=== PATIENT | female | born 1970 | race African-American/Black ===

== ENCOUNTER 2017-12-09 11:24 | Emergency (ER) | payer SELFPAY ==
[~2017-12-09] VITALS: Ht 157.5 cm; Wt 59.0 kg
[2017-12-09 11:51] VITALS: BP 118/67
--- NOTE | 2017-12-09 12:13 | Emergency Room Report ---
History of Present Illness General Chief Complaint: Back Pain-No Injury Source: Patient Present Illness HPI 47-year-old female patient presents ER complaining of back pain intermittently for the past year. Reports pain is worsened over the past few weeks. Reports pain sometimes radiates down right leg. Reports able to ambulate. Denies dysuria, hematuria. Denies hx of imaging on back. Denies history of back injury or surgery. Denies fever, chest pain, SOB. Denies bowel or bladder incontinence. Denies hx of surgery. Denies hx of cancer or IVDA. Denies abdominal pain. Denies saddle anesthesia. Allergies: Coded Allergies: No Known Allergies (Unverified , 12/09/17) Patient History Past Medical History: see triage record Reviewed Nursing Documentation: PMH: Agreed; PSxH: Agreed Nursing Documentation-PMH Past Medical History: No Stated History Review of Systems All Other Systems: negative except mentioned in HPI Physical Exam Vital Signs Date Time Temp Pulse Resp B/P (MAP) Pulse Ox O2 Delivery O2 Flow Rate FiO2 12/09/17 11:29 98.5 77 17 118/67 100 Room Air 98.4 Sp02 EP Interpretation: reviewed, normal General Appearance: well appearing, no apparent distress, alert, GCS 15, non- toxic Head: normocephalic, atraumatic Neck: full range of motion, no bony tend Respiratory: lungs clear, normal breath sounds, no rhonchi, no respiratory distress, no accessory muscle use, no wheezing, speaking full sentences Cardiovascular #1: regular rate, rhythm, no edema Genitourinary: no CVA tenderness Musculoskeletal: back normal, digits/nails normal, gait/station normal, normal range of motion, non-tender - spin, no calf tenderness, pelvis stable, other - no bony tenderness, no bony stepoff, NVI, no eccymosis, no erythema, tender - right lumbosacral region Neurologic: alert, oriented x3, responsive, motor strength/tone normal, SLR negative, sensory intact Skin: no rash Medical Decision Making PA Attestation Dr. Hill is my supervising Physician whom patient management has been discussed with. Diagnostic Impression: Primary Impression: Lumbosacral pain ER Course Pt presents to ED c/o back pain. DDX considered but are not limited to sprain, strain, cauda equina, sciatica. Low suspicion for cauda equina, no bowel or bladder incontinence or retention. CURES report negative. VITAL SIGNS are WNL, patient is afebrile Ordered pain medication, imaging, UA, urine . No previous imaging provided. ER COURSE: Pain medication provided. Ordered lumbar spine x-ray. Results show no acute fracture per the preliminary report. UA shows no nitrites, 0-2 WBC, patient denies dysuria, low suspicion for UTI, does not require abx treatment at this time. Urine negative. Results discussed with patient. Informed patient to rest. Will provide with medication. Informed likely muscular spasm or sciatica causing symptoms. Followup with primary are provider for further treatment and imaging. Contact insurance for name of physician to establish care. Patient reports feeling better prior to discharge. Able to ambulate independently, OK for discharge. DISCHARGE: -Rx provided for Tylenol -Rx provided for Lidocaine patch -Rx provided for Robaxin. SE drowsiness, do not take prior to drinking driving or operating heavy machinery. At this time pt. is stable for d/c to home. At this time patient is resting comfortably, in no acute distress, nontoxic appearing, smiling and talking without difficulty. Will provide printed patient care instructions, and any necessary prescriptions. Patient instructed to follow with primary care provider for further treatment and referral as needed. Care plan and follow up instructions have been discussed with the patient prior to discharge. Patient reports understanding and agreement to treatment plan. Patient questions asked and answered. ER precautions given, patient instructed to return to ER immediately for any new or worsening of symptoms. Labs Test 12/09/17 13:30 Urine Color Pale yellow Urine Appearance Clear Urine pH 6 (4.5-8.0) Urine Specific [place] 1.015 (1.005-1.035) Urine Protein Negative (NEGATIVE) Urine Glucose (UA) Negative (NEGATIVE) Urine Ketones Negative (NEGATIVE) Urine Occult Blood Negative (NEGATIVE) Urine Nitrite Negative (NEGATIVE) Urine Bilirubin Negative (NEGATIVE) Urine Urobilinogen Normal MG/DL (0.0-1.0) Urine Leukocyte Esterase 1+ (NEGATIVE) Urine RBC 0-2 /HPF (0 - 2) Urine WBC 0-2 /HPF (0 - 2) Urine Squamous Epithelial Cells Few /LPF (NONE/OCC) Urine Bacteria Occasional /HPF (NONE) Urine HCG, Qualitative Negative (NEGATIVE) Other X-Ray Diagnostic Results Other X-Ray Diagnostic Results : X-Ray ordered: lumbar spine # of Views/Limited Vs Complete: 3 View Indication: Pain EP Interpretation: Yes PA Xray: Interpretation reviewed, by supervising MD, and agrees with findings. Interpretation: no dislocation, no soft tissue swelling, no fractures Impression: No acute disease CECILY Scriblupis Text Florentino Todd PA-C Last Vital Signs Date Time Temp Pulse Resp B/P (MAP) Pulse Ox O2 Delivery O2 Flow Rate FiO2 12/09/17 11:51 98.4 77 17 118/67 100 Room Air 98.4 Disposition: HOME, SELF-CARE Condition: Stable Scripts Methocarbamol* (METHOCARBAMOL*) 500 Mg Tablet 500 MG ORAL TID PRN for For Pain, #15 TAB 0 Refills Prov: Bob Todd 12/09/17 Lidocaine (Lidocaine) 1 Each Adh..patch 700 MG TP DAILY for 7 Days, #7 PATCH Prov: Bob Todd 12/09/17 Acetaminophen* (TYLENOL EXTRA STRENGTH*) 500 Mg Tablet 500 MG ORAL Q8H PRN for Prn Headache/Temp > 101, #30 TAB 0 Refills Prov: Bob Todd 12/09/17 Patient Instructions: Back Pain, Adult, Sciatica Additional Instructions: Patient instructed to follow up with primary care provider and discuss further imaging and referral to orthopedics as needed. Patient instructed on rest, ice, and heat. Take medications as directed. Patient questions asked and answered. ER precautions given, patient instructed to return to ER immediately for any new or worsening of symptoms. Bob Todd Dec 09, 2017 12:13
[2017-12-09] MEDS ORDERED: Acetaminophen 500mg (ES) tab ORAL ONE (12:15)
[2017-12-09] MEDS ORDERED: Methocarbamol 500mg tab ORAL ONE (12:15)
[2017-12-09] MEDS ORDERED: LIDOCAINE700 M1 TP (13:06)
[2017-12-09] MEDS ORDERED: METHOCARBAMOL500 MG ORAL (13:06)
[2017-12-09] MEDS ORDERED: TYLENOL EXTRA500 MG ORAL (13:06)
[2017-12-09 13:43] LABS: APPEARANCE,URINE CLEAR; BILIRUBIN, URINE NEGATIVE (NEGATIVE); COLOR,URINE PALE YELLOW; GLUCOSE, URINE (UA) NEGATIVE (NEGATIVE); KETONES,URINE NEGATIVE (NEGATIVE); LEUKOCYTE ESTERASE ,URINE 1+ (NEGATIVE); NITRITE,URINE NEGATIVE (NEGATIVE); PH,URINE 6 (4.5-8.0); PROTEIN,URINE NEGATIVE (NEGATIVE); UROBILINOGEN,URINE NORMAL MG/DL (0.0-1.0)
--- NOTE | 2017-12-09 14:01 | Diagnostic Imaging Report ---
Indication: Pain Technique: XRAY L [employer] [employer] Comparison: None Findings: There are 5 nonrib-bearing lumbar-type vertebral bodies, assuming 12 paired ribs. Lumbar lordosis is maintained. There is no evidence of acute fracture. Bowel gas pattern is unremarkable. Impression: No evidence of acute fracture or traumatic malalignment.
[2017-12-09 14:10] VITALS: BP 102/63
[2017-12-09 14:11] VITALS: BP 102/63
== END 2017-12-09 14:10 | disposition home or self-care (01) ==
LOC: EMR 12:03
DX: M54.5 Low back pain (principal)
CPT/HCPCS: 72020; 81003; 81025; 99284